=== PATIENT | female | born 1970 | race Hispanic/Latino ===

== ENCOUNTER 2019-11-06 23:50 | Emergency (ER) | payer SELFPAY ==
[2019-11-06 23:57] VITALS: BP 102/65
[2019-11-07] MEDS ORDERED: predniSONE 20 MG TAB PO ONE (00:19)
[2019-11-07] MEDS ORDERED: diphenhydrAMINE 25 MG/10 ML ORAL LIQUID PO ONE (00:19)
[2019-11-07] MEDS ORDERED: FAMOTIDINE 20 MG TAB PO ONE (00:19)
--- NOTE | 2019-11-07 00:25 | Emergency Department Report ---
ED Allergic Reaction HPI - General Chief complaint: Skin Rash Stated complaint: POSS ALLERGIC REACTION Time Seen by Provider: 11/07/19 00:03 Source: patient Mode of arrival: Ambulatory Limitations: No Limitations - History of Present Illness Initial Comments: 49-year-old female presents emergency department complaining of allergic reaction and rash with pruritus to the body which she thinks may be secondary to a new lotion that she began using and not all over her body now she has redness hives and pruritus no wheezing. MD Complaint: allergic reaction, hives Symptoms: itching Severity: mild, moderate Treatment Prior to Arrival: none Previous Allergy History: none - Related Data Previous Rx's Medication Instructions Recorded Last Taken Type Famotidine [Pepcid] 40 mg PO DAILY #14 tablet 11/07/19 Unknown Rx Mometasone Furoate [Elocon] 1 applicatio TP QDAY #45 cream..g. 11/07/19 Unknown Rx hydrOXYzine HCL [Atarax] 25 mg PO Q6HR PRN #20 tablet 11/07/19 Unknown Rx predniSONE [Deltasone] 50 mg PO QDAY #5 tab 11/07/19 Unknown Rx ED Review of Systems ROS: Stated complaint: POSS ALLERGIC REACTION Other details as noted in HPI Comment: All other systems reviewed and negative ED Past Medical Hx - Past Medical History Previous Medical History?: Yes Hx Asthma: Yes - Surgical History Past Surgical History?: No - Social History Smoking Status: Current Every Day Smoker Substance Use Type: Alcohol, Marijuana - Medications Home Medications: Home Medications Medication Instructions Recorded Confirmed Last Taken Type Famotidine [Pepcid] 40 mg PO DAILY #14 tablet 11/07/19 Unknown Rx Mometasone Furoate [Elocon] 1 applicatio TP QDAY #45 cream..g. 11/07/19 Unknown Rx hydrOXYzine HCL [Atarax] 25 mg PO Q6HR PRN #20 tablet 11/07/19 Unknown Rx predniSONE [Deltasone] 50 mg PO QDAY #5 tab 11/07/19 Unknown Rx ED Physical Exam - General Limitations: No Limitations General appearance: alert, in no apparent distress - Head Head exam: Present: atraumatic, normocephalic - Eye Eye exam: Present: normal appearance - ENT ENT exam: Present: normal exam, normal orophraynx, mucous membranes moist, other (Airway patent tongue and uvula are midline no stridor) - Neck Neck exam: Present: normal inspection, full ROM. Absent: meningismus, lymphadenopathy, thyromegaly - Respiratory Respiratory exam: Present: normal lung sounds bilaterally. Absent: respiratory distress, wheezes, rales, rhonchi - Cardiovascular Cardiovascular Exam: Present: regular rate, normal rhythm. Absent: systolic murmur, diastolic murmur, rubs, gallop - GI/Abdominal GI/Abdominal exam: Present: soft, normal bowel sounds. Absent: distended, tenderness, hyperactive bowel sounds, hypoactive bowel sounds, organomegaly - Extremities Exam Extremities exam: Present: normal inspection - Back Exam Back exam: Present: normal inspection - Neurological Exam Neurological exam: Present: alert, oriented X3, CN II-XII intact - Psychiatric Psychiatric exam: Present: normal affect, normal mood - Skin Skin exam: Present: warm, dry, intact, erythema, urticaria. Absent: normal color, rash, pallor, abrasion, ecchymosis ED Course Vital Signs 11/06/19 11/07/19 23:55 01:13 Temperature 97.4 F L Pulse Rate 115 H 110 H Respiratory 16 18 Rate Blood Pressure 102/65 O2 Sat by Pulse 99 100 Oximetry ED Medical Decision Making - Medical Decision Making This patient presents with symptoms consistent with acute hypersensitivity reaction, likely acute allergic reaction. Presentation not consistent with acute anaphylaxis (lack of pulmonary, dermatologic, cardiovascular or GI symptoms, lack of hypotension or exposure to known allergen), angioedema, serum sickness(no recent drug exposure, lack of fevers, arthralgias), ingestion of preformed toxin. No evidence of airway compromise or shock at this time. Plan to treat for allergic reaction with H2/H1 blockers, steroids. No indication for epinephrine at this time. Plan treat rash and symptoms and sent home on steroids and antihistamines and f ollow-up in 24 to 48 hours No anaphylaxis during her hospital visit patient appeared to improve during the treatment time and was released home Critical care attestation.: If time is entered above; I have spent that time in minutes in the direct care of this critically ill patient, excluding procedure time. ED Disposition Clinical Impression: Allergic reaction, Hives Disposition: - TO HOME OR SELFCARE Is pt being admited?: No Does the pt Need Aspirin: No Condition: Stable Instructions: Urticaria (ED), Allergies (ED) Prescriptions: hydrOXYzine HCL [Atarax] 25 mg PO Q6HR PRN #20 tablet PRN Reason: Itching predniSONE [Deltasone] 50 mg PO QDAY #5 tab Mometasone Furoate [Elocon] 1 applicatio TP QDAY #45 cream..g. Famotidine [Pepcid] 40 mg PO DAILY #14 tablet Referrals: PIYUSH DOLL MD [Primary Care Provider] - 3-5 Days
== END 2019-11-07 01:13 | disposition home or self-care (01) ==
LOC: ED 23:50
DX: T78.49XA Other allergy, initial encounter (principal); L50.0 Allergic urticaria; J45.909 Unspecified asthma, uncomplicated; F12.90 Cannabis use, unspecified, uncomplicated; F17.200 Nicotine dependence, unspecified, uncomplicated; Z79.899 Other long term (current) drug therapy; X58.XXXA Exposure to other specified factors, initial encounter
CPT/HCPCS: 99282; J7512; Q0163